=== PATIENT | male | born 1995 | race Caucasian/White ===

== ENCOUNTER → 2024-12-17 18:52 | Outpatient (REF) | payer OTHER, SELFPAY | LOC: MRI 18:52 | PROVIDERS: ATTENDING PHYSICIAN Specialist | DX: M25.561 Pain in right knee (principal) | CPT/HCPCS: 73721 ==

== ENCOUNTER 2025-03-12 15:58 | Outpatient (RCR) | payer OTHER, SELFPAY | END 2025-03-12 23:59 | disposition home or self-care (01) | LOC: RPT 15:58 | PROVIDERS: ATTENDING PHYSICIAN Specialist; FAMILY PHYSICIAN Nurse Practitioner | DX: Q68.2 Congenital deformity of knee (principal); M22.41 Chondromalacia patellae, right knee; Z73.6 Limitation of activities due to disability; M62.81 Muscle weakness (generalized); R26.89 Other abnormalities of gait and mobility | CPT/HCPCS: 97110; 97112; 97161; 97530 ==

== ENCOUNTER 2025-04-02 09:31 | Outpatient (RCR) | payer OTHER, SELFPAY | END 2025-04-02 23:59 | disposition home or self-care (01) | LOC: RPT 09:31 | PROVIDERS: ATTENDING PHYSICIAN Specialist; FAMILY PHYSICIAN Nurse Practitioner | DX: Q68.2 Congenital deformity of knee (principal); M22.41 Chondromalacia patellae, right knee; Z73.6 Limitation of activities due to disability; M62.81 Muscle weakness (generalized); R26.89 Other abnormalities of gait and mobility | CPT/HCPCS: 97110; 97112; 97530 ==

== ENCOUNTER 2025-05-02 17:05 | Outpatient (RCR) | payer OTHER, SELFPAY | END 2025-05-03 06:01 | disposition home or self-care (01) | LOC: RPT 17:05 | PROVIDERS: ATTENDING PHYSICIAN Specialist; FAMILY PHYSICIAN Nurse Practitioner | DX: Q68.2 Congenital deformity of knee (principal); M22.41 Chondromalacia patellae, right knee; Z73.6 Limitation of activities due to disability; M62.81 Muscle weakness (generalized); R26.89 Other abnormalities of gait and mobility | CPT/HCPCS: 97112; 97530 ==